=== PATIENT | male | born 1985 | race African-American/Black ===

== ENCOUNTER 2025-04-08 09:10 | Emergency (ER) | payer OTHER | END 2025-04-08 09:47 | disposition home or self-care (01) | LOC: ERS 09:10 | DX: M25.571 Pain in right ankle and joints of right foot (principal); G89.29 Other chronic pain; I10 Essential (primary) hypertension; Z76.0 Encounter for issue of repeat prescription | CPT/HCPCS: 99283 ==

== ENCOUNTER 2025-04-16 09:40 | Emergency (ER) | payer OTHER ==
[2025-04-16] MEDS ORDERED: Ibuprofen 800 MG TAB ONE (11:20)
[2025-04-16 12:00] LABS: #Basophils 0.10 10x3/uL (0.0-0.2); #Eosinophils 0.43 10x3/uL (0.0-0.7); #Monocytes 0.63 10x3/uL (0.11-0.59); #Neutrophils 4.95 10x3/uL (1.40-6.50); %Basophils 1.1 % (0.0-1.0); %Eosinophils 4.8 % (0.0-10.0); %Lymphocytes 30.9 % (21.0-51.0); %Monocytes 7.1 % (0.0-10.0); %Neutrophils 55.8 % (42.0-75.0); Hematocrit 44.0 % (42.0-52.0); Hemoglobin 14.1 g/dL (14.0-18.0); Mean Corpuscular Hemoglobin 28.7 pg (27.0-31.0); Mean Corpuscular Volume 89.6 fL (78.0-98.0); Platelet Count 312 10x3/uL (130-400); Red Blood Cell (RBC) Count 4.91 mill/uL (4.70-6.10); White Blood Cell (WBC) Count 8.88 10x3/uL (4.8-10.8)
[2025-04-16 12:33] LABS: ALT (SGPT) 33 U/L (Less than 45); AST (SGOT) 30 U/L (11-34); Albumin 4.2 g/dL (3.1-4.5); Alkaline Phosphatase 88 U/L (40-110); Anion Gap 15 mmol/L (10-20); BUN (Urea Nitrogen) 15 mg/dL (8.9-20.6); Bilirubin, Total 0.4 mg/dL (0.3-1.2); Calc. Creatinine Clearance 0 mL/min (70-130); Calcium 9.5 mg/dL (7.8-10.44); Carbon Dioxide 24 mmol/L (22-29); Chloride 106 mmol/L (98-107); Globulin 2.8 g/dL (2.4-3.5); Glucose 103 mg/dL (70-105); Potassium 4.4 mmol/L (3.5-5.1); Sodium 141 mmol/L (136-145)
== END 2025-04-16 14:49 | disposition home or self-care (01) ==
LOC: ERS 09:40
DX: I10 Essential (primary) hypertension (principal); M25.571 Pain in right ankle and joints of right foot; G89.29 Other chronic pain; E78.00 Pure hypercholesterolemia, unspecified; Z79.899 Other long term (current) drug therapy
CPT/HCPCS: 36415; 80053; 84484; 85025; 93005; 99283

== ENCOUNTER 2025-04-28 21:22 | Emergency (ER) | payer OTHER | END 2025-04-28 23:28 | disposition home or self-care (01) | LOC: ERS 21:22 | DX: Z76.0 Encounter for issue of repeat prescription (principal); I10 Essential (primary) hypertension | CPT/HCPCS: 93005; 99282 ==